=== PATIENT | female | born 1980 | race Caucasian/White ===

== ENCOUNTER → 2018-07-03 | Outpatient (CLI) | payer OTHER | LOC: MHCPAIN 13:43 | DX: G89.29 Other chronic pain (principal); M47.817 Spondylosis without myelopathy or radiculopathy, lumbosacral region; M53.3 Sacrococcygeal disorders, not elsewhere classified | CPT/HCPCS: G0463 ==

== ENCOUNTER → 2018-07-25 | Outpatient (CLI) | payer OTHER | LOC: MHCPAIN 14:14 | DX: M47.817 Spondylosis without myelopathy or radiculopathy, lumbosacral region (principal); M54.16 Radiculopathy, lumbar region; M54.5 Low back pain ==

== ENCOUNTER → 2018-07-30 | Outpatient (CLI) | payer OTHER | LOC: MHCPAIN 14:01 | DX: G89.29 Other chronic pain (principal); M47.817 Spondylosis without myelopathy or radiculopathy, lumbosacral region; M53.3 Sacrococcygeal disorders, not elsewhere classified | CPT/HCPCS: G0463 ==

== ENCOUNTER → 2018-08-01 | Outpatient (CLI) | payer OTHER | LOC: MHCPAIN 10:56 | DX: M47.817 Spondylosis without myelopathy or radiculopathy, lumbosacral region (principal); M54.16 Radiculopathy, lumbar region ==

== ENCOUNTER → 2018-08-22 | Outpatient (CLI) | payer OTHER | LOC: MHCPAIN 15:06 | DX: G89.29 Other chronic pain (principal); M47.817 Spondylosis without myelopathy or radiculopathy, lumbosacral region; M53.3 Sacrococcygeal disorders, not elsewhere classified | CPT/HCPCS: G0463; J1100; J2250; J3010 ==

== ENCOUNTER → 2018-09-05 | Outpatient (CLI) | payer OTHER | LOC: MHCPAIN 14:29 | DX: M47.817 Spondylosis without myelopathy or radiculopathy, lumbosacral region (principal); M54.16 Radiculopathy, lumbar region | CPT/HCPCS: J1100; J2250; J3010 ==

== ENCOUNTER → 2018-11-12 | Outpatient (CLI) | payer OTHER | LOC: MHCPAIN 07:51 | DX: G89.29 Other chronic pain (principal); M47.817 Spondylosis without myelopathy or radiculopathy, lumbosacral region; M53.3 Sacrococcygeal disorders, not elsewhere classified | CPT/HCPCS: G0463 ==

== ENCOUNTER → 2019-03-11 | Outpatient (CLI) | payer OTHER | LOC: MHCPAIN 15:34 | DX: G89.29 Other chronic pain (principal); M47.817 Spondylosis without myelopathy or radiculopathy, lumbosacral region; M53.3 Sacrococcygeal disorders, not elsewhere classified | CPT/HCPCS: G0463 ==

== ENCOUNTER → 2021-11-11 | Outpatient (CLI) | payer OTHER | LOC: MC.RAD 09-30 08:30 | DX: Z12.31 Encounter for screening mammogram for malignant neoplasm of breast (principal); N63.20 Unspecified lump in the left breast, unspecified quadrant ==

== ENCOUNTER → 2021-11-16 | Outpatient (CLI) | payer OTHER | LOC: MC.RAD 12:40 | DX: N60.02 Solitary cyst of left breast (principal) ==

== ENCOUNTER → 2024-01-01 | Outpatient (CLI) | payer OTHER | LOC: MC.RAD 10:52 | DX: Z12.31 Encounter for screening mammogram for malignant neoplasm of breast (principal); N63.20 Unspecified lump in the left breast, unspecified quadrant ==